=== PATIENT | female | born 1970 | race Caucasian/White ===

== ENCOUNTER 2017-02-07 09:10 | Emergency (ER) | payer MEDICAID ==
[~2017-02-07] VITALS: Ht 152.4 cm; Wt 85.8 kg
[2017-02-07 09:15] VITALS: Ht 152.4 cm; Wt 85.8 kg
[2017-02-07 11:08] VITALS: BP 172/106
== END 2017-02-07 11:08 | disposition home or self-care (01) ==
LOC: ED 09:10
DX: S50.861A Insect bite (nonvenomous) of right forearm, initial encounter (principal); I10 Essential (primary) hypertension; W57.XXXA Bitten or stung by nonvenomous insect and other nonvenomous arthropods, initial encounter; Y93.89 Activity, other specified; Y92.89 Other specified places as the place of occurrence of the external cause; Y99.8 Other external cause status
CPT/HCPCS: Q0163